=== PATIENT | female | born 1945 | race Caucasian/White ===

== ENCOUNTER 2017-09-10 09:07 | Emergency (ER) | payer MEDICARE, OTHER ==
[2017-09-10 09:25] VITALS: BP 180/74; PULSE 63; RESP 17; TEMP 98.3; O2SAT 97
--- NOTE | 2017-09-10 09:51 | ED PDOC ---
HPI: General Adult Time Seen by Provider: 09/10/17 09:42 Chief Complaint (Nursing): Upper Extremity Problem/Injury Chief Complaint (Provider): left wrist and forearm pain History Per: Patient History/Exam Limitations: no limitations Onset/Duration Of Symptoms: Days (3 days ago) Current Symptoms Are (Timing): Still Present Additional Complaint(s): 72 y/o female presents to the ED complaining of left wrist and forearm pain after after sustaining a fall, onset of 3 days ago. Juan Boggs Past Medical History Reviewed: Historical Data, Nursing Documentation, Vital Signs Vital Signs: Last Vital Signs Temp 98.3 F 09/10/17 09:23 Pulse 63 09/10/17 09:23 Resp 17 09/10/17 09:23 BP 180/74 H 09/10/17 09:23 Pulse Ox 97 09/10/17 09:56 - Medical History PMH: HTN, Hyperlipidemia - Surgical History Surgical History: Cholecystectomy - Family History Family History: States: Unknown Family Hx - Social History Current smoker - smoking cessation education provided: No Ex-Smoker (has not smoked in the last 12 months): No Alcohol: None Drugs: Denies - Home Medications Home Medications: Ambulatory Orders Medication Instructions Recorded Ibuprofen 600 mg PO Q6 PRN #20 tablet 12/15/15 traMADol [Ultram] 50 mg PO Q8 #10 tab 09/10/17 - Allergies Allergies/Adverse Reactions: Allergies Allergy/AdvReac Type Severity Reaction Status Date / Time ORAGEL Allergy Severe ANGIOEDEMA Uncoded 09/10/17 09:43 Review of Systems ROS Statement: Except As Marked, All Systems Reviewed And Found Negative Constitutional: Negative for: Fever Musculoskeletal: Positive for: Hand Pain (wrist and forearm ain) Physical Exam - Reviewed Nursing Documentation Reviewed: Yes Vital Signs Reviewed: Yes - Physical Exam Appears: Positive for: Non-toxic, No Acute Distress Head Exam: Positive for: ATRAUMATIC Skin: Positive for: Normal Color, Warm Eye Exam: Positive for: Normal appearance Neck: Positive for: Normal Cardiovascular/Chest: Positive for: Regular Rate, Rhythm. Negative for: Murmur Respiratory: Positive for: Normal Breath Sounds. Negative for: Respiratory Distress Back: Positive for: Normal Inspection Extremity: Positive for: Normal ROM, Tenderness (to radial aspect of the forearm with ecchymosis), Swelling (to left wrist and distal forearm; ). Negative for: Pedal Edema, Deformity Neurologic/Psych: Positive for: Alert, Oriented. Negative for: Motor/Sensory Deficits - ECG O2 Sat by Pulse Oximetry: 97 Medical Decision Making Medical Decision Making: Time: --09:45 Impression: --Rule out arm fracture Plan: --Forearm Left X-ray --Wrist left X-ray Reassess -- Scribe Attestation: Documented by Shen Schneider acting as a scribe for Sina Alonzo MD. Disposition - Clinical Impression Clinical Impression: Fracture of wrist - Patient ED Disposition Is Patient to be Admitted: No Counseled Patient/Family Regarding: Studies Performed, Diagnosis, Need For Followup, Rx Given - Disposition Referrals: Richie Cavazos III, MD [Staff Provider] - Disposition: Routine/Home Disposition Time: 10:08 Condition: FAIR Prescriptions: traMADol [Ultram] 50 mg PO Q8 #10 tab Instructions: Wrist Fracture in Adults (ED) Forms: [employer] (Chinese)
--- NOTE | 2017-09-10 12:44 | RAD ---
PROCEDURE: Left Wrist Radiographs. HISTORY: trauma COMPARISON: None. FINDINGS: BONES: No acute fracture identified. No destructive bony lesion identified. However, there is extensive osteopenia suggesting osteoporosis which could limit the identification nondisplaced fractures. A small bone island is seen at the distal ulna. JOINTS: Cortical sclerosis seen throughout the carpal joints compatible with diffuse moderate degenerative joint disease. SOFT TISSUES: Vascular calcifications seen in the volar wrist soft tissues extending into the palm of the left hand. OTHER FINDINGS: None. IMPRESSION: No displaced fractures identified acutely and there is no dislocation either. Diffuse osteopenia suggests osteoporosis which can limit the identification of nondisplaced fractures.
== END 2017-09-10 10:21 | disposition home or self-care (01) ==
LOC: H.ER 09:07
DX: S62.002A Unspecified fracture of navicular [scaphoid] bone of left wrist, initial encounter for closed fracture (principal); W19.XXXA Unspecified fall, initial encounter; Y92.89 Other specified places as the place of occurrence of the external cause; E78.5 Hyperlipidemia, unspecified; I10 Essential (primary) hypertension

== ENCOUNTER 2018-02-23 09:43 | Emergency (ER) | payer MEDICARE, OTHER ==
[2018-02-23 09:54] VITALS: BMI 25.8
--- NOTE | 2018-02-23 11:03 | ED PDOC ---
HPI: Trauma/Fall - HPI Time Seen by Provider: 02/23/18 10:00 Chief Complaint (Nursing): Trauma Chief Complaint (Provider): Right sided facial and left knee pain History Per: Patient History/Exam Limitations: no limitations Onset/Duration Of Symptoms: Days (x1) Location Of Injury: Right: Face, Left: Leg (knee) Associated Symptoms: denies: LOC Additional Complaint(s): Ping Campos is a 73 year old female, with a past medical history of hypertension, who presents to the emergency department complaining of right sided facial pain and minimal left knee pain s/p fall last night. Patient reports she tripped and fell, she was able to ambulate w/o difficulty. She took Advil last night but nothing today. She denies any LOC, neck pain, or other injuries. No further medical complains. Tetanus UTD. PMD: Dr. Boggs - Fall Fall:Prior To Injury: Tripped Past Medical History Reviewed: Historical Data, Nursing Documentation, Vital Signs Vital Signs: Last Vital Signs Temp 98.8 F 02/23/18 09:53 Pulse 59 L 02/23/18 09:53 Resp 16 02/23/18 09:53 BP 149/80 02/23/18 09:53 Pulse Ox 98 02/23/18 09:53 - Medical History PMH: HTN, Hyperlipidemia - Surgical History Surgical History: Cholecystectomy - Family History Family History: States: Unknown Family Hx - Home Medications Home Medications: Ambulatory Orders Medication Instructions Recorded Ibuprofen 600 mg PO Q6 PRN #20 tablet 12/15/15 traMADol [Ultram] 50 mg PO Q8 #10 tab 09/10/17 - Allergies Allergies/Adverse Reactions: Allergies Allergy/AdvReac Type Severity Reaction Status Date / Time ORAGEL Allergy Severe ANGIOEDEMA Uncoded 09/10/17 09:43 Review of Systems ROS Statement: Except As Marked, All Systems Reviewed And Found Negative ENT: Positive for: Other (right sided facial pain) Musculoskeletal: Positive for: Leg Pain (left knee). Negative for: Neck Pain Physical Exam - Reviewed Nursing Documentation Reviewed: Yes Vital Signs Reviewed: Yes - Physical Exam Appears: Positive for: Non-toxic, No Acute Distress Head Exam: Positive for: ATRAUMATIC, NORMAL INSPECTION, NORMOCEPHALIC Skin: Positive for: Normal Color, Warm, Dry Eye Exam: Positive for: Normal appearance, EOMI, PERRL, Other (Tenderness to right inferior orbit with mild ecchymosis, no deformity or crepitus) ENT: Positive for: Other (minimal edema superior to the right upper lip. Dentition intact. ) Neck: Positive for: Painless ROM, Supple Cardiovascular/Chest: Positive for: Regular Rate, Rhythm. Negative for: Murmur Respiratory: Positive for: Normal Breath Sounds. Negative for: Respiratory Distress Gastrointestinal/Abdominal: Positive for: Normal Exam, Soft. Negative for: Tenderness, Other (ecchymosis) Back: Positive for: Normal Inspection. Negative for: L CVA Tenderness, R CVA Tenderness, Vertebral Tenderness Extremity: Positive for: Normal ROM (Full ROM to left knee), Other (Superficial abrasion to the left knee). Negative for: Deformity, Swelling Neurologic/Psych: Positive for: Alert, Oriented. Negative for: Motor/Sensory Deficits - ECG O2 Sat by Pulse Oximetry: 98 (RA) Pulse Ox Interpretation: Normal Medical Decision Making Medical Decision Making: Time: 10:00 Initial Impression: musculoskeletal pain s/p fall Initial Plan: --Maxillofacial w/o contrast [CT] --Knee 3 views LT [RAD] --Motrin tab 600 mg PO --Reevaluation Accession No. : [id number] Patient Name / ID : FRANCISCO RAHMAN / [id number] Exam Date : 02/23/2018 10:47:00 ( Approved ) Study Comment : Sex / Age : F / 73Y Creator : Roc Richey MD Dictator : Roc Richey MD Nicking Machine Operator : Steam Boiler Fireman : Roc Richey MD Approver2 : Report Date : 02/23/2018 12:07:26 My Comment : PROCEDURE: CT MAXILLOFACIAL BONES WITHOUT CONTRAST HISTORY: Fall COMPARISON: None TECHNIQUE: Contiguous axial CT images of the maxillofacial bones were obtained. Coronal and sagittal reformats were generated. Radiation dose: Total exam DLP = 760.79 mGy-cm. This CT exam was performed using one or more of the following dose reduction techniques: Automated exposure control, adjustment of the mA and/or kV according to patient size, and/or use of iterative reconstruction technique. FINDINGS: NASAL BONES: Unremarkable. ORBITS: Unremarkable. PARANASAL SINUSES/ MASTOIDS: Clear. MAXILLA: Unremarkable. MANDIBLE/ TEMPOROMANDIBULAR JOINTS: Unremarkable. SKULL BASE: Unremarkable. TEMPORAL BONES: Middle ears and mastoid grossly unremarkable. OTHER FINDINGS: None. IMPRESSION: Unremarkable non contrast enhanced CT of the maxillofacial bones. No evidence of maxillofacial fracture. Accession No. : [id number] Patient Name / ID : FRANCISCO RAHMAN / [id number] Exam Date : 02/23/2018 10:45:44 ( Approved ) Study Comment : Sex / Age : F / 73Y Creator : Roc Richey MD Dictator : Roc Richey MD Nicking Machine Operator : Steam Boiler Fireman : Roc Richey MD Approver2 : Report Date : 02/23/2018 12:08:28 My Comment : PROCEDURE: Left Knee Radiographs. HISTORY: Pain. COMPARISON: None. FINDINGS: BONES: Status post TKR. No evidence of prosthesis loosening. No acute fracture. JOINTS: Normal. No osteoarthritis. JOINT EFFUSION: None. OTHER FINDINGS: None. IMPRESSION: TKR. No acute fracture. ----- Scribe Attestation: Documented by Dallas Lopze, acting as a scribe for Rosy Escobar MD. Provider Scribe Attestation: All medical record entries made by the Scribe were at my direction and personally dictated by me. I have reviewed the chart and agree that the record accurately reflects my personal performance of the history, physical exam, medical decision making, and the department course for this patient. I have also personally directed, reviewed, and agree with the discharge instructions and disposition. Disposition - Clinical Impression Clinical Impression: Facial contusion, Knee abrasion - Disposition Referrals: Juan Boggs MD [Family Provider] - Disposition: Routine/Home Disposition Time: 12:24 Condition: STABLE Additional Instructions: CONTINUE ADVIL NEEDED FOR PAIN. Instructions: Skin Abrasions, Contusion (DC) Forms: [facility] (Japanese)
--- NOTE | 2018-02-23 12:08 | CT ---
PROCEDURE: CT MAXILLOFACIAL BONES WITHOUT CONTRAST HISTORY: Fall COMPARISON: None TECHNIQUE: Contiguous axial CT images of the maxillofacial bones were obtained. Coronal and sagittal reformats were generated. Radiation dose: Total exam DLP = 760.79 mGy-cm. This CT exam was performed using one or more of the following dose reduction techniques: Automated exposure control, adjustment of the mA and/or kV according to patient size, and/or use of iterative reconstruction technique. FINDINGS: NASAL BONES: Unremarkable. ORBITS: Unremarkable. PARANASAL SINUSES/ MASTOIDS: Clear. MAXILLA: Unremarkable. MANDIBLE/ TEMPOROMANDIBULAR JOINTS: Unremarkable. SKULL BASE: Unremarkable. TEMPORAL BONES: Middle ears and mastoid grossly unremarkable. OTHER FINDINGS: None. IMPRESSION: Unremarkable non contrast enhanced CT of the maxillofacial bones. No evidence of maxillofacial fracture.
--- NOTE | 2018-02-23 12:10 | RAD ---
PROCEDURE: Left Knee Radiographs. HISTORY: Pain. COMPARISON: None. FINDINGS: BONES: Status post TKR. No evidence of prosthesis loosening. No acute fracture. JOINTS: Normal. No osteoarthritis. JOINT EFFUSION: None. OTHER FINDINGS: None. IMPRESSION: TKR. No acute fracture.
[2018-02-23 12:36] VITALS: BP 121/77; PULSE 65; RESP 14; TEMP 98.2
[2018-02-24 15:54] VITALS: O2SAT 98
== END 2018-02-23 12:38 | disposition home or self-care (01) ==
LOC: H.ER 09:43
DX: S00.83XA Contusion of other part of head, initial encounter (principal); S80.02XA Contusion of left knee, initial encounter; W19.XXXA Unspecified fall, initial encounter; Y92.89 Other specified places as the place of occurrence of the external cause; E78.5 Hyperlipidemia, unspecified; I10 Essential (primary) hypertension